=== PATIENT | female | born 1960 | race Hispanic/Latino ===

== ENCOUNTER 2018-05-15 11:29 | Emergency (ER) | payer SELFPAY ==
--- NOTE | 2018-05-15 12:32 | C.PDOC ---
History Of Present Illness 58 y/o female presents to the ED for evaluation of head injury s/p fall just prior to arrival. Patient states she tripped and fell, striking the right side of face on pavement. Denies LOC, prodrome, dizziness, or visual loss. No other injuries at this time. - HPI Time Seen by Provider: 05/15/18 12:06 Chief Complaint (Nursing): Trauma History Per: Patient History/Exam Limitations: no limitations Injury Occurred (Timing): Just Before Arrival Location Of Injury: Right: Face Past Medical History Reviewed: Historical Data, Nursing Documentation, Vital Signs Surgical History: Cholecystectomy Family History: States: No Known Family Hx - Social History Hx Alcohol Use: Yes Hx Substance Use: No - Immunization History Hx Tetanus Toxoid Vaccination: No Hx Influenza Vaccination: Yes Hx Pneumococcal Vaccination: No Review Of Systems Except As Marked, All Systems Reviewed And Found Negative. Constitutional: Negative for: Fever Eyes: Negative for: Vision Change Cardiovascular: Negative for: Chest Pain Respiratory: Negative for: Shortness of Breath Gastrointestinal: Negative for: Vomiting, Abdominal Pain Musculoskeletal: Negative for: Neck Pain, Back Pain Skin: Positive for: Lesions (to right side of face) Neurological: Negative for: Weakness, Numbness, Incoordination, Change in Speech , Altered Mental Status, Headache, Dizziness Physical Exam - Physical Exam Appears: Non-toxic, No Acute Distress Skin: Warm, Dry, No Rash Head: Normacephalic, Other (Superficial contusion to right temporal face and cheek area; No bleeding and no tenderness to zygomatic process) Eye(s): bilateral: Normal Inspection, PERRL, EOMI Ear(s): Bilateral: Normal Oral Mucosa: Moist Neck: Normal ROM, No Midline Cervical Tenderness, No Paracervical Tenderness, No Step Off Deformity, Supple Chest: Symmetrical, No Tenderness Cardiovascular: Rhythm Regular Respiratory: No Accessory Muscle Use, Other (no respiratory distress) Extremity: Bilateral: Atraumatic, Normal Color And Temperature, Normal ROM Neurological/Psych: Oriented x3, Normal Speech Medical Decision Making Medical Decision Making: Plan: * bacitracin applied * motrin PO Impression: tripped and fell, superficial R facial contusion/abrasions no lac LOW susp of brain injury no prodrome Defer CT w informed consent. Disposition Doctor Will See Patient In The: Office Counseled Patient/Family Regarding: Studies Performed, Diagnosis - Disposition Referrals: [facility] [Outside] [employer] [facility] [Outside] [facility] [Outside] [facility] [Outside] Disposition: HOME/ ROUTINE Disposition Time: 12:31 Condition: GOOD Additional Instructions: continue to clean with soap and water daily thin smear of Bacitracin ointment twice a day follow-up in our outpatient Clinic as needed Instructions: Contusion (DC), Minor Head Injury Forms: [employer] ([place]ian) - Clinical Impression Clinical Impression: Contusion - Scribe Statement The provider has reviewed the documentation as recorded by the Scribe (Nette Collins) Provider Attestation: All medical record entries made by the Scribe were at my direction and personally dictated by me. I have reviewed the chart and agree that the record accurately reflects my personal performance of the history, physical exam, medical decision making, and the department course for this patient. I have also personally directed, reviewed, and agree with the discharge instructions and disposition.
[2018-05-15] MEDS ORDERED: Bacitracin 500 Units/gm Oint Foilpak UD ONE ×2 (12:37→13:10)
== END 2018-05-15 14:07 | disposition home or self-care (01) ==
LOC: C.ER 11:29
DX: S00.83XA Contusion of other part of head, initial encounter (principal); W01.0XXA Fall on same level from slipping, tripping and stumbling without subsequent striking against object, initial encounter; Y92.480 Sidewalk as the place of occurrence of the external cause